=== PATIENT | male | born 2000 | race Caucasian/White ===

== ENCOUNTER 2023-11-08 20:18 | Emergency (ER) | payer BC ==
[~2023-11-08] VITALS: Ht 182.9 cm; Wt 180.3 kg
[2023-11-08] MEDS ORDERED: LOSA100T5 PO (22:21)
[2023-11-08] MEDS ORDERED: MONT10TA97 PO (22:22)
[2023-11-08] MEDS ORDERED: ACET-897 PO (22:23)
[2023-11-08] MEDS ORDERED: NAPR-837 PO (22:45)
[2023-11-08] MEDS: NAPROXEN 250 MG TAB PO ONE (22:50)
[2023-11-08 23:05] VITALS: BP 142/76; TEMP 97.1; O2SAT 97
== END 2023-11-08 23:08 | disposition home or self-care (01) ==
LOC: M ED 20:18
DX: S76.212A Strain of adductor muscle, fascia and tendon of left thigh, initial encounter (principal); Y92.9 Unspecified place or not applicable; Y93.9 Activity, unspecified; Y99.9 Unspecified external cause status; I10 Essential (primary) hypertension; J45.909 Unspecified asthma, uncomplicated; F17.290 Nicotine dependence, other tobacco product, uncomplicated; Z88.0 Allergy status to penicillin; Z88.1 Allergy status to other antibiotic agents; Z79.1 Long term (current) use of non-steroidal anti-inflammatories (NSAID); Z79.899 Other long term (current) drug therapy